=== PATIENT | male | born 2005 | race Caucasian/White ===

== ENCOUNTER 2023-06-29 15:53 | Emergency (ER) | payer OTHER, SELFPAY ==
[2023-06-29 16:32] VITALS: BP 121/62; PULSE 82; RESP 18; TEMP 36.8; O2SAT 99
--- NOTE | 2023-06-29 17:02 | ED.SKABFB ---
HPI - Skin/Abscess/Foreign Bdy General Chief complaint: Skin/Abscess/Foreign Body Stated complaint: rash on feet and hands Time Seen by Provider: 06/29/23 17:02 Source: patient, RN notes reviewed and old records reviewed Mode of arrival: ambulatory Limitations: no limitations History of Present Illness HPI narrative: 18-year-old male who presents [facility] with rash to feet and hands especially right hand. Patient states that rash initially started on feet and he has been using Tinactin on his feet. He then noted rash spreading to his right hand with fingers excoriated and circular lesions on upper right hand noted. Patient states he went to pharmacy to ask what to get OTC and was told he needed to get rash looked at. Patient reports discomfort to his right finger with full ROM noted. Patient denies any fevers, chills or sweats, no drainage or weeping from wounds noted. Patient reports that he thinks his feet are better but his hand is sore. MD complaint: rash Onset (ago): month(s) (1) Location: L hand, R hand, L foot and R foot Severity: moderate Treatments prior to arrival: other (Tinactin ) Related Data Allergies Allergy/AdvReac Type Severity Reaction Status Date / Time No Known Allergies Allergy Verified 06/29/23 17:08 Review of Systems Review of Systems: CONSTITUTIONAL: Denies fever, chills, or sweats. CARDIOVASCULAR: Denies chest pain, palpitations, or edema. RESPIRATORY: Denies cough or dyspnea. SKIN: Reports red dry scaly rash to bilateral feet and to hand especially right with his fingers swollen and excoriated and lesions with central clearing on upper dorsal right hand minimal excoriation to left hand. MUSCULOSKELETAL: Denies joint pain or myalgia. NEUROLOGIC: Denies headache, numbness, or weakness. All systems reviewed & are unremarkable except as noted in HPI and below PMFSH Past Medical History Medical History (Updated 06/30/23 @ 11:39 by Radha Lofton NP) Ear infection Social History Social History (Updated 06/30/23 @ 11:33 by Radha Lofton NP) Smoking packs per day: 0.5 Smoking cigarettes per day: 10.0 Years smoked: 3 Smoking pack-years: 1.50 Smoking status: Current every day smoker Tobacco type: cigarettes Alcohol intake: unknown Substance use: unknown Living arrangements: with family Gender identity (if verbalized by the patient): Male Comments At time of signature, agree with nursing past medical, surgical, social and family history. There is no relevant family history pertinent to the presenting complaint Exam Narrative: GENERAL: Well-appearing, well-nourished, and in no acute distress. HEAD: Normocephalic, atraumatic. EYES: PERRLA, conjunctivae clear, and EOMI. ENT: Mucous membranes moist. Oropharynx without edema, erythema or lesions. NECK: Supple. No lymphadenopathy CHEST: Clear to auscultation. No respiratory distress.SAO2 99% on room air HEART: Regular rate and rhythm. SKIN: Warm, dry.? Patches of erythema and excoriation noted to bilateral feet, patient reports some improvement to feet with use of Tinactin. right hand red with fingers excoriated, small circular lesions with central clearing noted to upper right hand, minimal excoriation noted to left hand.Reports that right hand has had increased symptoms for past week. with soreness, no drainage or weeping noted from tissues. NEURO:? Alert and oriented x3. PSYCH: Normal mood and affect Course Course Emergency Course: Patient is aware of diagnosis, understands and agrees to treatment plan.? Anticipatory guidance given.? Patient agrees to follow-up as directed and is aware of reasons to seek care at the emergency department. Portions of this record may have been created with voice recognition software Level of Care: Express Care Visit Vital Signs Vital signs: Vital Signs Oxygen Delivery Room Air 06/29/23 16:30 Temperature 36.8 C 06/29/23 16:32 Pulse Ra
== END 2023-06-29 17:30 | disposition home or self-care (01) ==
PROVIDERS: Emergency Provider Registered Nurse
DX: B35.9 Dermatophytosis, unspecified (principal); B35.4 Tinea corporis; B35.3 Tinea pedis; F17.210 Nicotine dependence, cigarettes, uncomplicated
CPT/HCPCS: 99213; G0463

== ENCOUNTER 2024-08-05 14:30 | Emergency (ER) | payer OTHER, SELFPAY ==
[2024-08-05 14:41] VITALS: BP 122/72; PULSE 96; RESP 18; TEMP 36.7
--- NOTE | 2024-08-05 15:25 | ED_ITS ---
HPI - Skin/Abscess/Foreign Bdy General Chief complaint: Skin/Abscess/Foreign Body Stated complaint: rash on hands Time Seen by Provider: 08/05/24 15:25 Source: patient Mode of arrival: ambulatory Limitations: no limitations History of Present Illness HPI narrative: 19 yo M presents with c/o rash to both rash for approx. 6 months. itchy at times. did have athletes foot and used hands to apply antifungal cream. c oncerned that he now has fungal rash to hands. All systems reviewed and negative except as noted above. Related Data Allergies Allergy/AdvReac Type Severity Reaction Status Date / Time No Known Allergies Allergy Verified 08/05/24 14:33 Review of Systems Review of Systems: CONSTITUTIONAL: Denies fever, chills, or sweats. EYES: Denies visual changes, redness, or discharge. ENT: Denies rhinorrhea, congestion, sore throat, or otalgia. CARDIOVASCULAR: Denies chest pain, palpitations, or edema. RESPIRATORY: Denies cough or dyspnea. GASTROINTESTINAL: Denies abdominal pain, nausea, vomiting, or diarrhea. GENITOURINARY: Denies dysuria or hematuria. SKIN: reports dry skin, rash, itching to both hands. MUSCULOSKELETAL: Denies back pain, joint pain, or myalgia. NEUROLOGIC: Denies headache, numbness, or weakness. PSYCHIATRIC: Denies anxiety or depression. All other systems reviewed are negative, except as documented in HPI. [facility] Past Medical History Medical History (Updated 08/05/24 @ 15:33 by Yamilka Matute NP) Ear infection Social History Social History (Updated 06/30/23 @ 11:33 by Radha Lofton NP) Smoking packs per day: 0.5 Smoking cigarettes per day: 10.0 Years smoked: 3 Smoking pack-years: 1.50 Smoking status: Current every day smoker Tobacco type: cigarettes Alcohol intake: unknown Substance use: unknown Living arrangements: with family Gender identity (if verbalized by the patient): Male Comments At time of signature, agree with nursing past medical, surgical, social and family history. There is no relevant family history pertinent to the presenting complaint. Exam Narrative: GENERAL: This is a well-nourished, well-developed patient, in no apparent distress. HEAD: normocephalic, atraumatic. EYES: PERRL. Sclera clear/white. Vision is grossly intact. EARS: External ears normal NOSE: External nose normal . NECK: Neck supple, non-tender without lymphadenopathy, masses or thyromegaly. CARDIOVASCULAR: Regular rate and rhythm without murmurs, gallops, or rubs. RESPIRATORY: Clear to auscultation. Breath sounds equal bilaterally. No wheezes, rales, or rhonchi. SKIN: warm, Dry, intact, good texture and turgor. dry, scaly skin, peeling to both hands along lateral aspects of fingers and webbing NEURO: awake, alert, and oriented to person, place and time. There were no obvious focal neurologic abnormalities. EXTREMITIES: No joint tenderness, effusion, or edema noted. Course Course Level of Care: Express Care Visit Vital Signs Vital signs: Vital Signs Temperature 36.7 C 08/05/24 14:41 Pulse Rate 96 08/05/24 14:41 Respiratory Rate 18 08/05/24 14:41 Blood Pressure 122/72 08/05/24 14:41 Temperature 36.7 C 08/05/24 14:41 Pulse Rate 96 08/05/24 14:41 Respiratory Rate 18 08/05/24 14:41 Blood Pressure 122/72 08/05/24 14:41 Reviewed MDM - Skin/Abscess/Foreign Bdy MDM Narrative Medical decision making narrative: Patient is aware of diagnosis, understands and agrees to treatment plan. Anticipatory guidance given. Patient agrees to follow-up as directed and is aware of reasons to seek care at the emergency department. Portions of this record may have been created with voice recognition software rash to both hands most likely eczema. patient thought that rash was fungal infection due to applying antifungal to athlete's foot. Has been applying antifungal to cream for several weeks with no improvement. Discharge Plan Discharge Clinical Impression: Acute eczema of hand Patient Disposition: Home, Self-Care Condition: Stable Instructions: Eczema (ED) Additional Instructions: Apply steroid cream with an [id number] and non scented moisturizer such as Eucerin. Apply steroid cream 2 to 3 times a day during flare-ups. Avoid washing hands with hot water. Follow-up with your primary care physician if not improving. Prescriptions: New methylprednisolone [Medrol ([place])] 4 mg tablets,dose pack See Rx Instructions PO .COMPLEX Qty: 21 0RF Rx Instructions: orally per package directions triamcinolone acetonide 0.1 % cream 1 applic topical BID Qty: 30 0RF Follow-up/Referrals: PHYSICIAN,AUTOMATION DESIGN ENGINEER [Primary Care Provider] - Time of Disposition: 15:31
== END 2024-08-05 15:35 | disposition home or self-care (01) ==
PROVIDERS: Emergency Provider Nurse Practitioner Family
DX: L30.9 Dermatitis, unspecified (principal); F17.210 Nicotine dependence, cigarettes, uncomplicated
CPT/HCPCS: 99213; G0463

== ENCOUNTER 2024-12-12 11:01 | Emergency (ER) | payer OTHER, SELFPAY ==
[2024-12-12 11:15] VITALS: BP 126/73; PULSE 70; RESP 16; TEMP 36.5; O2SAT 98
--- NOTE | 2024-12-12 11:15 | ED.EYEPROB ---
HPI - Eye Problem General Chief complaint: Eye Problems Stated complaint: Bilateral [place] [facility] Source: patient Mode of arrival: ambulatory Limitations: no limitations History of Present Illness HPI Narrative: 19-year-old male presented for complaint of bilateral eye redness, itching, burning and gritty sensation. Endorses waking in the morning with eye crust and has drainage throughout the day. Onset 1 week. Has used [id number] eyedrops without relief. Denies vision changes, eye injury, photophobia, headache, dizziness. chief complaint: eye pain Related Data Allergies Allergy/AdvReac Type Severity Reaction Status Date / Time No Known Allergies Allergy Verified 12/12/24 11:16 Review of Systems Review of Systems: per HPI All systems reviewed & are unremarkable except as noted in HPI and below PMFSH Past Medical History Medical History (Updated 12/12/24 @ 11:15 by Ama Marks APRN) Ear infection Social History Social History (Updated 06/30/23 @ 11:33 by Radha Lofton NP) Smoking packs per day: 0.5 Smoking cigarettes per day: 10.0 Years smoked: 3 Smoking pack-years: 1.50 Smoking status: Current every day smoker Tobacco type: cigarettes Alcohol intake: unknown Substance use: unknown Living arrangements: with family Gender identity (if verbalized by the patient): Male Comments At time of signature, I have reviewed and agree with nursing past medical, surgical, social and family history unless otherwise noted. Please see nursing chart for further information. There is no relevant family history pertinent to the presenting complaint Exam Narrative: GENERAL: Well-appearing HEAD: Normocephalic, atraumatic. EYES: bilateral conjunctival injection with purulent drainage and crust to the lids noted. no eye lid swelling/redness. PERRLA EOMI. Lid eversion shows no foreign body ENT: Mucous membranes pink and moist. No rhinorrhea. TMs normal bilaterally. Throat normal. Uvula midline. CHEST: Clear to auscultation. SKIN: Warm, dry, no rash. Normal skin turgor. NEURO: No focal deficits. Alert and oriented x3 PSYCH: Normal affect. Course Course Emergency Course: Patient is aware of diagnosis, understands and agrees to treatment plan. Anticipatory guidance given. Patient agrees to follow-up as directed and is aware of reasons to seek care at the emergency department. Portions of this record may have been created with voice recognition software Level of Care: Express Care Visit Vital Signs Vital signs: Vital Signs Temperature 97.7 F 12/12/24 11:15 Pulse Rate 70 12/12/24 11:15 Respiratory Rate 16 12/12/24 11:15 Blood Pressure 126/73 12/12/24 11:15 Pulse Oximetry 98 12/12/24 11:15 Oxygen Delivery Room Air 12/12/24 11:15 Temperature 97.7 F 12/12/24 11:15 Pulse Rate 70 12/12/24 11:15 Respiratory Rate 16 12/12/24 11:15 Blood Pressure 126/73 12/12/24 11:15 Pulse Oximetry 98 12/12/24 11:15 Oxygen Delivery Room Air 12/12/24 11:15 MDM - Eye Problem MDM Narrative Medical decision making narrative: Discussed physical exam findings Consistent with bilateral conjunctivitis. Advised supportive measures and signs/symptoms to go to the ER. Pt is appropriate for outpt treatment and f/u. Differential Diagnosis Differential diagnosis: Likely corneal abrasion, conjunctivitis, acute iritis and other Discharge Plan Discharge Clinical Impression: Bacterial conjunctivitis Patient Disposition: Home Condition: Stable Instructions: Antibiotic Form, Conjunctivitis (ED) Additional Instructions: Avoid touching or rubbing your eye. Use over the counter lubricating eye drops as needed for irritation Use a warm or cool washcloth on your eye for comfort Use eyedrops as directed - you are contagious for 24 hours after starting the antibiotic Practice good handwashing and hygiene to prevent spread of infection You may take Tylenol or ibuprofen for pain Follow-up with PCP or senior manager quality assurance if condition is not improving in 2-3days. Go to the emergency room if you have severe pain or pressure behind your eye, difficulty seeing, or other severe symptoms [facility] [phone] [facility] [phone] [facility] [phone] [facility] [phone] Patient Language: Kazakh Prescriptions: New polymyxin B sulf-trimethoprim 10,000 unit- 1 mg/mL drops 1 drp EACH EYE Q3H 7 Days Qty: 10 0RF Rx Instructions: while awake; do not exceed 6 doses in 24 hours No Action triamcinolone acetonide 0.1 % cream 1 applic topical BID Qty: 30 0RF Follow-up/Referrals: PHYSICIAN,GREENHOUSE MANAGER [Primary Care Provider] - Time of Disposition: 11:23
--- OUTSIDE RECORDS SUMMARY | 2024-12-12 11:51 | XMS_ITS | Data Portability ---
Author Organization 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 Plan of Treatment Reminders Order Date Submit Date Provider Last Modified By Organization Details Last Modified Time Details Appointments None recorded. Lab prolactin , serum 2023 024 [facility], [address] [facility], [facility] [address], [place], [address], 4 04:09:54 testoster one, free + total, serum 2023 024 [facility], [address] [facility], [facility] [address], [place], [address], 4 04:09:51 lh + FSH, serum 2023 024 [facility], [address] [facility], [facility], [place], [address], 4 04:09:55 semen analysis fertility panel 2023 024 [email or web address], [address] [facility], [facility] [address], [place], [address], 4 16:00:50 CMP, serum or plasma 2023 024 [facility], [address] [facility], [facility] [address], [place], [address], 4 04:09:52 CBC w/ auto diff 2023 024 [facility], [address] [facility], [address], [place], [address], 4 04:09:54 lipid panel, serum 2023 024 [facility], [address] [facility], [address], [place], [address], 4 04:09:51 HbA1c (hemoglob in A1c), blood 2023 024 [facility], [address] [facility], [address], [place], [address], 4 04:09:53 TSH, ultra-sen sitive, serum 2023 024 [facility], [address] [facility], [facility], [place], [address], 4 04:09:53 Referral infertili ty reproduct ivan endocrino logy referral 2023 024 [email or web address] [facility] , [address] [place] [address], [address], 12:54:05 Procedures None recorded. Surgeries None recorded. Imaging None recorded. Medication Orders famotidin e 20 mg tablet 2023 024 [id number], [address] , [place], [place], [id number], 11:20:46 Patient TargetsNo targets recorded. Patient Instructions Encounter Date Encounter Id Patient Instructions Last Modified By Organization Details Last Modified Time 12/25/2023 [id number] A healthy lifestyle: care instructions nsuthan Not available 12/25/2023 11:19:08 Quitting Tobacco : Care Instructions nsuthan Not available 12/25/2023 11:19:08 tdap/prn nsuthan Not available 2023 11:19:20 Reason for Referral Infertility Reproductive End ocrinology Referral for Male infertility Referring Physician: Ryan Diaz, Internal Medicine, Encounter Date: 12/25/2023 Results Created Date Observation Date Name Description Value Unit Range Abnormal Flag Note LastModifiedBy Organization Detail LastModifiedTime 12/25/19 24 12/26/2023 TESTO STERO NE,FR EE AND TOTAL testosterone 627 NG/dL 264-91 6 Adult male refer ence inter obey is based on a popul ation of healt hy nonob winter males (BMI <30) betwe en 19 and 39 years old. Edilberto marshall et.al . JCEM 2017, 102;1 161-1 173. PMID: 07643 103. Not Available [facility] ([facility]) [address] [place], [address], 12/30/2023 04:09:51 12/25/19 24 12/30/2023 TESTO STERO NE,FR EE AND TOTAL free testosterone (direct) 11.1 pg/mL 9.3-26 .5 Not Available [facility] ([facility]) [address] [place], [address], 12/30/2023 04:09:51 12/25/19 24 12/26/2023 LIPID PANEL cholesterol, total 170 mg/dL 100-19 9 Not Available [facility] ([facility]) [address] [place], [address], 12/30/2023 04:09:51 12/25/19 24 12/26/2023 LIPID PANEL triglyceride s 113 mg/dL 0-149 Not Available [facility] ([facility]) [address] [place], [address], 12/30/2023 04:09:51 12/25/19 24 12/26/2023 LIPID PANEL HDL cholesterol 36 mg/dL >39 below low normal Not Available [facility] ([facility]) [address] [place], [address], 12/30/2023 04:09:51 12/25/19 24 12/26/2023 LIPID PANEL VLDL cholesterol barb 21 mg/dL 5-40 Not Available [facility] ([facility]) [address] [place], [address], 12/30/2023 04:09:51 12/25/19 24 12/26/2023 LIPID PANEL LDL chol calc ([facility]) 113 mg/dL 0-99 above high normal Not Available [facility] ([facility]) [address] [place], [address], 12/30/2023 04:09:51 12/25/19 24 12/26/2023 COMP. METAB OLIC PANEL (14) glucose 86 mg/dL 70-99 Not Available [facility] ([facility]) [address] [place], [address], 12/30/2023 04:09:52 12/25/19 24 12/26/2023 COMP. METAB OLIC PANEL (14) BUN 15 mg/dL 6-20 Not Available [facility] ([facility]) [address] [place], [address], 12/30/2023 04:09:52 12/25/19 24 12/26/2023 COMP. METAB OLIC PANEL (14) creatinine 1.03 mg/dL 0.76-1 .27 Not Available [facility] ([facility]) [address] [place], [address], 12/30/2023 04:09:52 12/25/19 24 12/26/2023 COMP. METAB OLIC PANEL (14) eGFR 107 mL/mi n/1.7 3 >59 Not Available [facility] ([facility]) [address] [place], [address], 12/30/2023 04:09:52 12/25/19 24 12/26/2023 COMP. METAB OLIC PANEL (14) BUN/creatini ne ratio 15 9-20 Not Available [facility] ([facility]) [address] [place], [address], 12/30/2023 04:09:52 12/25/19 24 12/26/2023 COMP. METAB OLIC PANEL (14) sodium 139 mmol/ L 134-14 4 Not Available [facility] ([facility]) [address] [place], [address], 12/30/2023 04:09:52 12/25/19 24 12/26/2023 COMP. METAB OLIC PANEL (14) potassium 4.6 mmol/ L 3.5-5. 2 Not Available [facility] ([facility]) [address] [place], [address], 12/30/2023 04:09:52 12/25/19 24 12/26/2023 COMP. METAB OLIC PANEL (14) chloride 102 mmol/ L 96-106 Not Available [facility] ([facility]) [address] [place], [address], 12/30/2023 04:09:52 12/25/19 24 12/26/2023 COMP. METAB OLIC PANEL (14) carbon dioxide, total 23 mmol/ L 20- Not Available [facility] ([facility]) [address] [place], [address], 12/30/2023 04:09:52 12/25/19 24 12/26/2023 COMP. METAB OLIC PANEL (14) calcium 9.9 mg/dL 8.7-10 .2 Not Available [facility] ([facility]) [address] [place], [address], 12/30/2023 04:09:52 12/25/19 24 12/26/2023 COMP. METAB OLIC PANEL (14) protein, total 7.6 g/dL 6.0-8. 5 Not Available [facility] ([facility]) [address] [place], [address], 12/30/2023 04:09:52 12/25/19 24 12/26/2023 COMP. METAB OLIC PANEL (14) albumin 4.7 g/dL 4.3-5. 2 Not Available [facility] ([facility]) [address] [facility] [place], [address], 12/30/2023 04:09:52 12/25/19 24 12/26/2023 COMP. METAB OLIC PANEL (14) globulin, total 2.9 g/dL 1.5-4. 5 Not Available [facility] ([facility]) [address] [facility] [place], [address], 12/30/2023 04:09:52 12/25/19 24 12/26/2023 COMP. METAB OLIC PANEL (14) A/G ratio 1.6 1.2-2. 2 Not Available [facility] ([facility]) [address] [facility] [place], [address], 12/30/2023 04:09:52 12/25/19 24 12/26/2023 COMP. METAB OLIC PANEL (14) bilirubin, total 0.4 mg/dL 0.0-1. 2 Not Available [facility] ([facility]) [address] [facility] [place], [address], 12/30/2023 04:09:52 12/25/19 24 12/26/2023 COMP. METAB OLIC PANEL (14) alkaline phosphatase 133 IU/L 51-125 above high normal Not Available [facility] ([facility]) [address] [facility] [place], [address], 12/30/2023 04:09:52 12/25/19 24 12/26/2023 COMP. METAB OLIC PANEL (14) AST (SGOT) 15 IU/L 0-40 Not Available [facility] ([facility]) [address] [facility] [place], [address], 12/30/2023 04:09:52 12/25/19 24 12/26/2023 COMP. METAB OLIC PANEL (14) ALT (SGPT) 14 IU/L 0-44 Not Available [facility] ([facility]) [address] [place], [address], 12/30/2023 04:09:52 12/25/19 24 12/26/2023 HEMOG LOBIN A1C hemoglobin A1C 5.0 % 4.8-5. 6 Predi abete s: 5.7 - 6.4 Diabe deejay: >6.4 Glyce adri contr ol for adult s with diabe deejay: <7.0 Not Available [facility] ([facility]) [address] [facility], [place], [address], 12/30/2023 04:09:53 12/25/19 24 12/26/2023 TSH TSH 2.840 uIU/m L 0.450- 4.500 Not Available [facility] ([facility]) [address] [place], [address], 12/30/2023 04:09:53 12/25/19 24 12/26/2023 PROLA CTIN prolactin 8.5 NG/mL 3.6-31 .5 Not Available [facility] ([facility]) [address] [place], [address], 12/30/2023 04:09:54 12/25/19 24 12/26/2023 CBC WITH DIFFE RENTI AL/PL ATELE T WBC 10.4 x10e3 /uL 3.4-10 .8 Not Available [facility] ([facility]) [address] [place], [address], 12/30/2023 04:09:54 12/25/19 24 12/26/2023 CBC WITH DIFFE RENTI AL/PL ATELE T RBC 5.13 x10e6 /uL 4.14-5 .80 Not Available [facility] ([facility]) [address] [place], [address], 12/30/2023 04:09:54 12/25/19 24 12/26/2023 CBC WITH DIFFE RENTI AL/PL ATELE T hemoglobin 16.4 g/dL 13.0-1 7.7 Not Available [facility] ([facility]) [address] [place], [address], 12/30/2023 04:09:54 12/25/19 24 12/26/2023 CBC WITH DIFFE RENTI AL/PL ATELE T hematocrit 47.2 % 37.5-5 1.0 Not Available [facility] ([facility]) [address] [place], [address], 12/30/2023 04:09:54 12/25/19 24 12/26/2023 CBC WITH DIFFE RENTI AL/PL ATELE T MCV 92 fL 79-97 Not Available [facility] ([facility]) [address] [facility], [place], [address], 12/30/2023 04:09:54 12/25/19 24 12/26/2023 CBC WITH DIFFE RENTI AL/PL ATELE T MCH 32.0 pg 26.6-3 3.0 Not Available [facility] ([facility]) [address] [place], [address], 12/30/2023 04:09:54 12/25/19 24 12/26/2023 CBC WITH DIFFE RENTI AL/PL ATELE T MCHC 34.7 g/dL 31.5-3 5.7 Not Available [facility] ([facility]) [address] [place], [address], 12/30/2023 04:09:54 12/25/19 24 12/26/2023 CBC WITH DIFFE RENTI AL/PL ATELE T RDW 12.4 % 11.6-1 5.4 Not Available [facility] ([facility]) [address] [place], [address], 12/30/2023 04:09:54 12/25/19 24 12/26/2023 CBC WITH DIFFE RENTI AL/PL ATELE T platelets 332 x10e3 /uL 150-45 0 Not Available [facility] ([facility]) [address] [facility], [place], [address], 12/30/2023 04:09:54 12/25/19 24 12/26/2023 CBC WITH DIFFE RENTI AL/PL ATELE T neutrophils 53 % notest ab. Not Available [facility] ([facility]) [address] [facility], [place], [address], 12/30/2023 04:09:54 12/25/19 24 12/26/2023 CBC WITH DIFFE RENTI AL/PL ATELE T lymphs 35 % notest ab. Not Available [facility] ([facility]) [address] [facility], [place], [address], 12/30/2023 04:09:54 12/25/19 24 12/26/2023 CBC WITH DIFFE RENTI AL/PL ATELE T monocytes 6 % notest ab. Not Available [facility] ([facility]) [address] [facility], [place], [address], 12/30/2023 04:09:54 12/25/19 24 12/26/2023 CBC WITH DIFFE RENTI AL/PL ATELE T eos 4 % notest ab. Not Available [facility] ([facility]) [address] [facility], [place], [address], 12/30/2023 04:09:54 12/25/19 24 12/26/2023 CBC WITH DIFFE RENTI AL/PL ATELE T basos 1 % notest ab. Not Available [facility] ([facility]) [address] [facility], [place], [address], 12/30/2023 04:09:54 12/25/19 24 12/26/2023 CBC WITH DIFFE RENTI AL/PL ATELE T neutrophils (absolute) 5.6 x10e3 /uL 1.4-7. 0 Not Available [facility] ([facility]) [address] [facility], [place], [address], 12/30/2023 04:09:54 12/25/19 24 12/26/2023 CBC WITH DIFFE RENTI AL/PL ATELE T lymphs (absolute) 3.7 x10e3 /uL 0.7-3. 1 above high normal Not Available [facility] ([facility]) [address] [facility], [place], [address], 12/30/2023 04:09:54 12/25/19 24 12/26/2023 CBC WITH DIFFE RENTI AL/PL ATELE T monocytes(ab solute) 0.7 x10e3 /uL 0.1-0. 9 Not Available [facility] ([facility]) [address] [facility], [place], [address], 12/30/2023 04:09:54 12/25/19 24 12/26/2023 CBC WITH DIFFE RENTI AL/PL ATELE T eos (absolute) 0.4 x10e3 /uL 0.0-0. 4 Not Available [facility] ([facility]) [address] [facility], [place], [address], 12/30/2023 04:09:54 12/25/19 24 12/26/2023 CBC WITH DIFFE RENTI AL/PL ATELE T baso (absolute) 0.1 x10e3 /uL 0.0-0. 2 Not Available [facility] ([facility]) [address] [place], [address], 12/30/2023 04:09:54 12/25/19 24 12/26/2023 CBC WITH DIFFE RENTI AL/PL ATELE T immature granulocytes 1 % notest ab. Not Available [facility] ([facility]) [address] [place], [address], 12/30/2023 04:09:54 12/25/19 24 12/26/2023 CBC WITH DIFFE RENTI AL/PL ATELE T immature grans (abs) 0.1 x10e3 /uL 0.0-0. 1 Not Available [facility] ([facility]) [address] [facility], [place], [address], 12/30/2023 04:09:54 12/25/19 24 12/26/2023 FSH AND LH LH 4.0 mIU/m L 1.7-8. 6 Not Available [facility] ([facility]) [address] [place], [address], 12/30/2023 04:09:55 12/25/19 24 12/26/2023 FSH AND LH FSH 1.2 mIU/m L 1.5-12 .4 below low normal Not Available [facility] ([facility]) [address] [place], [address], 12/30/2023 04:09:55 Result Notes None recorded. Problems No Known Problems Medical Equipment None Reported. Allergies No known drug allergies Medications Name Sig Start Date Stop Date Status Note LastModified by Organization Details LastModified Time famotidine 20 mg tablet Take 1 tablet twice a day by oral route. 024 active Not Available Not Available Not Avai lable Vitals Date Recorded Body height Body mass index (BMI) Percentile per age and sex Body mass index (BMI) Body weight Heart rate Respiratory rate Body temperature Oxygen saturation Oxygen saturation in Arterial blood by Pulse oximetry Systolic blood pressure Diastolic blood pressure Provider Name and Address Organization Details Last Updated DateTime 4 175.26 cm 92 % 29.9 kg/m2 98368.8 1 g 71 /min 14 /min 97.2 [degF] 97 % 97 % 120 mm[Hg] 79 mm[Hg] CALEB Alicia - [facility] 10:57:21 Social History Question Answer Notes LastModified by Organizat ion Details LastModified Time Tobacco Smoking Status Current Every Day Smoker Dianna Valdez MA null, [place] - [facility] 12/25/2023 10:52:06 What Is Your Level Of Alcohol Consumption? None Information not available 12/25/2023 Are You Blind Or Do You Have Difficulty Seeing? No Information not available 12/25/2023 What Is Your Level Of Caffeine Consumption? Heavy Soda Information not available 12/25/2023 In The 14 Days Before Symptom Onset, Have You Had Close Contact With A Laboratory-confi rmed COVID-19 While That Case Was Ill? No Information not available 12/25/2023 In The 14 Days Before Symptom Onset, Have You Had Close Contact With A Person Who Is Under Investigation For COVID-19 While That Person Was Ill? No Information not available 12/25/2023 Have You Been To An Area Known To Be High Risk For COVID-19? No Information not available 12/25/2023 Are You Currently Employed? No Information not available 12/25/2023 Are You Deaf Or Do You Have Serious Difficulty Hearing? No Information not available 12/25/2023 What Type Of Diet Are You Following? REGULAR Information not available 12/25/2023 What Is The Highest Grade Or Level Of School You Have Completed Or The Highest Degree You Have Received? [id number] Information not available 12/25/2023 Are There Any Guns Present In Your Home? No Information not available 12/25/2023 What Was The Date Of Your Most Recent Tobacco Screening? 12/25/2023 Information not available 12/25/2023 What Is Your Relationship Status? Single Research And Development Tester Relationship Information not available 12/25/2023 Do You Use Your Seat Belt Or Car Seat Routinely? Yes Information not available 12/25/2023 Do You Have Smoke And Carbon Monoxide Detectors In Your Home? Yes Information not available 12/25/2023 At What Age Did You Start Smoking Tobacco? 16 Information not available 12/25/2023 How Much Tobacco Do You Smoke? 0.5 PPD Information not available 12/25/2023 Do You Feel Stressed (tense, Restless, Nervous, Or Anxious, Or Unable To Sleep At Night)? [id number] Information not available 12/25/2023 Do You Use Any Illicit Or Recreational Drugs? No Information not available 12/25/2023 Do You Use Sunscreen Routinely? Yes Information not available 12/25/2023 Has Tobacco Cessation Counseling Been Provided? Yes Information not available 12/25/2023 On What Date Was Tobacco Cessation Counseling Provided? 12/25/2023 Information not available 12/25/2023 Do You Or Have You Ever Used Any Other Forms Of Tobacco Or Nicotine? No Information not available 12/25/2023 Sex: Male Functional Status Question Answer Note LastModified by Organization D etails LastModified Time Are you able to care for yourself? No Information n ot available 12/25/2023 What is your exercise level? None Information not available 12/25/2023 Mental Status None recorded. Family History Relationship Description Onset Age of this Age Resolved Age Notes LastModified by Organization Details LastModified Time Father No current problems or disability Not available 12/24 10:51:00 Mother No current problems or disability Not available 12/24 10:51:00 Medical History Condition Response Coronary Artery Disease N Other N High Blood Pressure N Atrial Fibrillation N Kidney or Bladder Problems N Thyroid Problems N GI Problems N Depression N COPD N Blood Clots N Skin Problems N Anemia N Heart Attack ([place]) N Anxiety Disorder N Diabetes N Muscle, Joint, or Bone Problems N Seizures/Epilepsy N Acid Reflux (GERD) Y Cancer N Stroke N Asthma N Allergies N High Cholesterol N Hepatitis N Liver Disease N Headaches N Heart Failure N Osteoporosis N Immunizations Vaccine Type Date Status Note Provider Nam e and Address Organization Details Recorded Time Tdap 12/25/2023 completed Joshua Diaz MD Attn: [address] [facility], [place], [address], [facility] 12/25/2023 15:32:54 Past Encounters Encounter ID Performer Location Encounter Start Date Encounter Closed Date Diagnosis/Indication Diagnosis SNOMED-CT Code Diagnosis ICD10 Code Diagnosis Note [id number] Joshua Diaz MD [facility] (Adult Med) [address] [place] [address] 12/25/2023 10:10:39 12/26/2023 10:15:15 Adult health examination 779989926 Z00.00 healthy diet and exercise discussed with pt Overweight 078226482 E66 .3 Male infertility 7748937 N46.9 - girlfriend has been checked and may have pco- requesting eval - will refer to infertilit y specialist Smoker 73024233 F17.200 Administra tion of diphtheria, pertussis, and tetanus vaccine 322469469 Z23 Gastroesop hageal reflux disease without esophagitis 479012547 K21.9 Health Concerns Section Related Observation LastModified by Organization Detai ls LastModified Time None Recorded Concern Status LastModified by Organization Details LastModified Time None Recorded Advance Directives Directive None Recorded Payers Encounter Date Sequence Insurance Name Policy Number Policy Tucker Covered Member ID Tucker Member ID Guarantor Name 12/25/2023 2 *SELF PAY* Timothy Orozco 12/25/2023 1 [employer] [place] - DOS ON OR AFTER 2020 (MEDICAID REPLACEMENT - HMO) Jean Paul Orozco [id number] Jean Paul Orozco Notes Date Note Type Note Provider Name and Address Organization Details Recorded Time 12/25/2023 text/html New pt is here t o establish pcp/ accompanied by his girlfriend who reported that they have been trying to have baby for last 3-4 yrs . Girlfriend is under care of [employer] and had all the evaluations (may have pcos , but she has 6 yr old son from her previous relationship) pt also has heart burn /denied any other issues Joshua Diaz MD Attn: [address] [facility], [place], [address], [facility] 12/25/2023 15:38:25
== END 2024-12-12 11:27 | disposition home or self-care (01) ==
PROVIDERS: Emergency Provider Nurse Practitioner Family
DX: H10.9 Unspecified conjunctivitis (principal); F17.210 Nicotine dependence, cigarettes, uncomplicated
CPT/HCPCS: 99213; G0463